=== PATIENT | female | born 1990 | race Caucasian/White ===

== ENCOUNTER 2019-05-26 09:30 | Observation (INO) | payer BC, SELFPAY ==
[2019-05-26 10:22] VITALS: BP 115/75; PULSE 85
[2019-05-26 10:30] VITALS: BMI 27.6
--- NOTE | 2019-06-23 10:55 | PM.OBTRLD ---
OB - Triage/Final Diagnosis Final Diagnosis (1) Spotting: Code(s): N92.0 - Excessive and frequent menstruation with regular cycle Status: Acute
== END 2019-05-26 10:20 | disposition home or self-care (01) ==
PROVIDERS: Admitting Provider Obstetrics & Gynecology; Visit Provider Obstetrics & Gynecology
DX: O26.853 Spotting complicating pregnancy, third trimester (principal); Z3A.29 29 weeks gestation of pregnancy
CPT/HCPCS: G0378; G0379

== ENCOUNTER 2019-06-20 16:54 | Observation (INO) | payer BC, SELFPAY ==
--- NOTE | ~2019-06-20 | US_ITS ---
EXAMINATION: US OB BPP wo non-stress DATE: 06/20/2019 17:55 POLITICAL ORGANIZER INDICATION: Hypertension TECHNIQUE: Real-time transabdominal obstetric ultrasound. FINDINGS: No prior studies for comparison. There is a single living fetus in vertex presentation. The placenta is anterior without placenta pre via. cardiac activity and movement is noted with a heart rate of 141 beats per minute. Biophysical profile: breathin of 2 movement: 2 of 2 tone: 2 of 2 Amniotic flud pocket: 2 of 2 Total score: 8 of 8 IMPRESSION: 1. Single living intrauterine in vertex presentation. 2: Total biophysical profile score of 8/8. Reviewed, dictated and finalized at location A. TICAL ORGANIZER
[2019-06-20 17:05] LABS: Basophils Percent Auto 0.2 % (0.2-1.2); Eosinophils Absolute Auto 0.1 K/mm3 (0-0.3); Eosinophils Percent Auto 0.5 % (0-4.4); Hematocrit 31.9 % (37.0-47.0); Hemoglobin 10.9 g/dL (12.0-15.0); Immature Granulocyte Absolute 0.13 K/mm3 (0.00-0.031); Immature Granulocyte Percent A 1.1 % (0-0.5); Lymphocytes Absolute Auto 2.03 K/mm3 (0.9-3.2); Lymphocytes Percent Auto 16.5 % (18.3-44.2); Mean Corpuscular HGB Conc 34.2 g/dl (32-36); Mean Corpuscular Hemoglobin 31.8 pg (26-34); Mean Platelet Volume 11.4 fl (7.4-10.4); Monocytes Absolute Auto 0.9 K/mm3 (0.1-0.6); Monocytes Percent Auto 7.4 % (2.6-8.5); Neutrophils Absolute Auto 9.1 K/mm3 (1.3-6.7); Neutrophils Percent Auto 74.3 % (45.5-73.1); Platelet Count Result 172 k/mm3 (150-375); Red Blood Count 3.43 M/mm3 (4.2-5.4); Red Cell Distribution Width 12.8 % (11.5-14.5); White Blood Count 12.3 K/mm3 (4.5-10.0)
[2019-06-20 17:13] LABS: Creatinine Urine 35.9 mg/dL; Total Protein Urine Random 12 mg/dL
[2019-06-20 17:16] LABS: Add Urine Microscopic? YES; Appearance Urine Clear (Clear); Bacteria Urine Trace /hpf; Bilirubin Urine Negative (Negative); Blood Urine Negative (Negative); Color Urine Straw (Yellow); Glucose Urine UA Negative (Negative); Ketones Urine Trace mg/dL (Negative); Leukocyte Esterase Ur Negative LEU/UL (NEGATIVE); Mucus Urine Rare /lpf; Nitrate Urine Negative (Negative); Protein Urine Negative (Negative); RBC Urine 0-2 /hpf (0-2); Urobilinogen Urine Negative mg/dL (<2.0)
[2019-06-20 17:17] LABS: Alanine Aminotransferase 16 U/L (4-35); Albumin Level 3.6 g/dL (3.5-5.1); Alkaline Phosphatase 100 U/L (38-126); Aspartate Amino Transferase 20 U/L (14-36); Bilirubin,Total 0.2 mg/dL (0.2-1.3); Blood Urea Nitrogen 11 mg/dL (7-17); Calcium 9.5 mg/dL (8.4-10.2); Carbon Dioxide 19 mmol/L (22-30); Chloride 102 mmol/L (98-107); Estimated Glomerular Filt Rate > 60; Glucose 84 mg/dL (65-105); Potassium 3.6 mmol/L (3.4-5.0); Sodium 136 mmol/L (137-145); Uric Acid 4.1 mg/dL (2.5-7.5)
[2019-06-20 17:27] VITALS: BP 116/70; PULSE 91
[2019-06-20 20:57] LABS: Fetal Fibronectin Negative
--- NOTE | 2019-06-23 20:51 | PM.OBTRLD ---
OB - Triage/Final Diagnosis Evaluation Laboratory results: Laboratory Tests 06/20/19 06/20/19 06/20/19 16:54 16:54 16:54 WBC 12.3 H RBC 3.43 L Hgb 10.9 L Hct 31.9 L MCV 93.0 MCH 31.8 MCHC 34.2 RDW 12.8 Plt Count 172 MPV 11.4 H Immature Gran % (Auto) 1.1 H Neut % (Auto) 74.3 H Lymph % (Auto) 16.5 L Stevens % (Auto) 7.4 Eos % (Auto) 0.5 Baso % (Auto) 0.2 Lymph # (Auto) 2.03 Stevens # (Auto) 0.9 H Eos # (Auto) 0.1 Baso # (Auto) 0.0 Abs Immat Gran (auto) 0.13 H Absolute Neuts (auto) 9.1 H Absolute Nucleated RBC 0.0 Nucleated RBC % 0.0 Sodium Potassium Chloride Carbon Dioxide BUN Creatinine Estim Creat Clear Calc Estimated GFR Glucose Uric Acid Calcium Total Bilirubin AST ALT Alkaline Phosphatase Total Protein Albumin Urine Color Straw Urine Appearance Clear Urine pH 6.0 Ur Specific [place] 1.010 Urine Protein Negative Urine Glucose (UA) Negative Urine Ketones Trace Ur Blood (Man) Negative Urine Nitrate Negative Urine Bilirubin Negative Urine Urobilinogen Negative Ur Leukocyte Esterase Negative Urine RBC 0-2 Urine WBC 4-6 H Urine Bacteria Trace Urine Mucus Rare U Random Total Protein 12 Urine Creatinine 35.9 Fibronectin 06/20/19 06/20/19 16:54 20:17 WBC RBC Hgb Hct MCV MCH MCHC RDW Plt Count MPV Immature Gran % (Auto) Neut % (Auto) Lymph % (Auto) Stevens % (Auto) Eos % (Auto) Baso % (Auto) Lymph # (Auto) Stevens # (Auto) Eos # (Auto) Baso # (Auto) Abs Immat Gran (auto) Absolute Neuts (auto) Absolute Nucleated RBC Nucleated RBC % Sodium 136 L Potassium 3.6 Chloride 102 Carbon Dioxide 19 L BUN 11 Creatinine 0.50 L Estim Creat Clear Calc Not Reportable Estimated GFR > 60 Glucose 84 Uric Acid 4.1 Calcium 9.5 Total Bilirubin 0.2 AST 20 ALT 16 Alkaline Phosphatase 100 Total Protein 7.0 Albumin 3.6 Urine Color Urine Appearance Urine pH Ur Specific [place] Urine Protein Urine Glucose (UA) Urine Ketones Ur Blood (Man) Urine Nitrate Urine Bilirubin Urine Urobilinogen Ur Leukocyte Esterase Urine RBC Urine WBC Urine Bacteria Urine Mucus U Random Total Protein Urine Creatinine Fibronectin Negative Final Diagnosis (1) Non-reactive NST (non-stress test): Code(s): O28.8 - Other abnormal findings on screening of mother Status: Acute
== END 2019-06-20 21:40 | disposition home or self-care (01) ==
LOC: ANHOBOP 21:37 → ANHOBPP 23:22
PROVIDERS: Admitting Provider Obstetrics & Gynecology; Visit Provider Obstetrics & Gynecology
DX: O28.8 Other abnormal findings on antenatal screening of mother (principal); Z3A.00 Weeks of gestation of pregnancy not specified
CPT/HCPCS: 36415; 59025; 76819; 80053; 81001; 82570; 82731; 84156; 84550; 85025; 87086; G0378; G0379

== ENCOUNTER 2019-06-22 14:30 | Outpatient (RCR) | payer BC, SELFPAY ==
[2019-06-22 15:16] VITALS: BP 120/65; PULSE 95
== END 2019-08-04 14:36 | disposition home or self-care (01) ==
LOC: ANHOBOP 14:30
PROVIDERS: Visit Provider Obstetrics & Gynecology
DX: O24.419 Gestational diabetes mellitus in pregnancy, unspecified control (principal); Z3A.33 33 weeks gestation of pregnancy
CPT/HCPCS: 59025

== ENCOUNTER 2019-06-22 14:33 | Outpatient (RCR) | payer BC, SELFPAY ==
[2019-06-14 11:04] VITALS: BMI 29.2
== END 2019-09-04 23:59 | disposition home or self-care (01) ==
LOC: ANHDMC 14:33
PROVIDERS: Visit Provider Obstetrics & Gynecology
DX: O24.410 Gestational diabetes mellitus in pregnancy, diet controlled (principal); Z3A.00 Weeks of gestation of pregnancy not specified; Z71.3 Dietary counseling and surveillance; Z71.89 Other specified counseling
CPT/HCPCS: 97802; G0108

== ENCOUNTER 2019-07-25 06:08 | Inpatient (IN) | payer BC, SELFPAY ==
[2019-07-25] VITALS (86 sets, daily range): BP systolic 94–135; BP diastolic 56–99; PULSE 62–105; RESP 16; TEMP 36.6–37.3; O2SAT 98–100; BMI 28.2
[2019-07-25 07:29] LABS: Basophils Percent Auto 0.4 % (0.2-1.2); Eosinophils Absolute Auto 0.1 K/mm3 (0-0.3); Eosinophils Percent Auto 0.6 % (0-4.4); Hematocrit 33.3 % (37.0-47.0); Hemoglobin 11.3 g/dL (12.0-15.0); Immature Granulocyte Percent A 1.1 % (0-0.5); Lymphocytes Absolute Auto 1.66 K/mm3 (0.9-3.2); Lymphocytes Percent Auto 17.5 % (18.3-44.2); Mean Corpuscular HGB Conc 33.9 g/dl (32-36); Mean Corpuscular Hemoglobin 31.9 pg (26-34); Mean Corpuscular Volume 94.1 fl (80-100); Mean Platelet Volume 12.1 fl (7.4-10.4); Monocytes Absolute Auto 0.7 K/mm3 (0.1-0.6); Monocytes Percent Auto 7.2 % (2.6-8.5); Neutrophils Percent Auto 73.2 % (45.5-73.1); Platelet Count Result 140 k/mm3 (150-375); Red Blood Count 3.54 M/mm3 (4.2-5.4); Red Cell Distribution Width 13.2 % (11.5-14.5); White Blood Count 9.5 K/mm3 (4.5-10.0)
[2019-07-25 08:18] LABS: Glucose Point of Care 91 (65-105)
[2019-07-25] MEDS: OXYTOCIN 30 UNITS/NS 500 ML 30 UNITS/500 ML BAG IV CONT (10:32)
[2019-07-25] MEDS: LACTATED RINGERS 1,000 ML 125 ML IV CONT ×2 (10:32→12:40)
--- NOTE | 2019-07-25 13:23 | WPDANESEPPF ---
Anes - Initial Pre Proc Eval Date/Time: 07/25/19 13:23 Surgeon: Lauro Moreno MD Pre Op Diagnosis: SROM?/ leaking fluid Patient Data Age: 29 Gender: F Height: 5 ft 5 in Weight: 77 kg Last Vital Signs Temp 37.1 C 07/25/19 10:34 Pulse 72 07/25/19 13:22 BP 107/65 07/25/19 13:22 Pulse Ox 100 07/25/19 13:22 Allergies Allergy/AdvReac Type Severity Reaction Status Date / Time pine nut AdvReac Vomiting Verified 07/19/19 09:36 Home Medications Medication Instructions Recorded Confirmed Type vits 75-iron 28 mg-folic 1 pkg PO DAILY 03/21/19 07/25/19 History acid 800 mcg-omega-3 oral combo pack blood sugar diagnostic #100 each 06/09/19 07/25/19 Rx lancets 30 gauge #100 each 06/09/19 07/25/19 Rx [id number]-vit C-docusate sod 1 tablet PO DAILY #30 tablet 06/22/19 07/25/19 Rx 90 mg-1 mg-12 mcg-120 mg-50mg tablet Laboratory Tests 07/25/19 07/25/19 07/25/19 07:17 07:17 07:17 WBC 9.5 K/mm3 K/mm3 (4.5-10.0) RBC 3.54 M/mm3 L M/mm3 (4.2-5.4) Hgb 11.3 g/dL L g/dL (12.0-15.0) Hct 33.3 % L % (37.0-47.0) MCV 94.1 fl fl (80-100) MCH 31.9 pg pg (26-34) MCHC 33.9 g/dl g/dl (32-36) RDW 13.2 % % (11.5-14.5) Plt Count 140 k/mm3 L k/mm3 (150-375) MPV 12.1 fl H fl (7.4-10.4) Immature Gran % (Auto) 1.1 % H % (0-0.5) Neut % (Auto) 73.2 % H % (45.5-73.1) Lymph % (Auto) 17.5 % L % (18.3-44.2) [place] % (Auto) 7.2 % % (2.6-8.5) Eos % (Auto) 0.6 % % (0-4.4) Baso % (Auto) 0.4 % % (0.2-1.2) Lymph # (Auto) 1.66 K/mm3 K/mm3 (0.9-3.2) [place] # (Auto) 0.7 K/mm3 H K/mm3 (0.1-0.6) Eos # (Auto) 0.1 K/mm3 K/mm3 (0-0.3) Baso # (Auto) 0.0 K/mm3 K/mm3 (0.0-0.1) Abs Immat Gran (auto) 0.10 K/mm3 H K/mm3 (0.00-0.031) Absolute Neuts (auto) 7.0 K/mm3 H K/mm3 (1.3-6.7) Absolute Nucleated RBC 0.0 K/mm3 K/mm3 (0.0-0.012) Nucleated RBC % 0.0 % % (0.0-0.2) POC Capillary Glucose RPR Pending Blood Type AB Positive Antibody Screen Negative 07/25/19 08:14 WBC RBC Hgb Hct MCV MCH MCHC RDW Plt Count MPV Immature Gran % (Auto) Neut % (Auto) Lymph % (Auto) [place] % (Auto) Eos % (Auto) Baso % (Auto) Lymph # (Auto) [place] # (Auto) Eos # (Auto) Baso # (Auto) Abs Immat Gran (auto) Absolute Neuts (auto) Absolute Nucleated RBC Nucleated RBC % POC Capillary Glucose 91 mg/dl mg/dl (65-105) RPR Blood Type Antibody Screen Patient hx anesthesia problems: none Family hx anesthesia problems: none PMFSH Past Medical History Medical History Elevated blood sugar Gestational diabetes mellitus (GDM) Family History Family History Mother Diabetes mellitus Hypertension Father Diabetes mellitus Family history of hypercholesterolemia Hypertension Grandparent Diabetes mellitus Family history of hypercholesterolemia Hypertension Cerebrovascular accident Social History Social History Smoking status: Never smoker Alcohol intake: current Substance use: never Gender identity (if verbalized by the patient): Female Spiritual care concerns: No Anes - Eval Final PreProcedure Day of Procedure 07/25/19 13:23 Patient weight: overweight Heart: regular rate and rhythm Lungs: clear to auscultation Neurological: alert and oriented ASA classification: II Emergent: no Anesthetic plan: proceed Anesthesia type and monitoring: regional e
[2019-07-25 13:44] LABS: Glucose Point of Care 65 (65-105)
[2019-07-25] MEDS: OXYTOCIN 30 UNITS/NS 500 ML 30 UNITS/500 ML BAG 125 UNITS IV CONT (15:36)
--- NOTE | 2019-07-25 15:47 | PM.IMHP ---
H&P: HPI History of Present Illness Chief complaint: SROM?/ leaking fluid Narrative: Snow Aviles is a 29 year old female G1 presented with complaints of leaking of fluid at 0430. Confirmed positive rupture of membranes on L and D. Irregular contractions. Cervix on admission 2-/-2. PNC significant for her having an abnormal one hour glucola. She refused three hour GTT. She had subsequent glucose monitoring which she had some elevated glucose levels. She was seen by testing consultant. Her fingersticks did normalize. She did not require insulin. Last ultrasound showed normal EFW. She had anemia of which improved on oral iron supplementation. GBS negative. Labs: ABpos, Ab-neg, Ur Cx-neg, HepBsag-neg, GC/CHL- neg/neg, H/H-.6, CF-neg, FragX-neg, SMNA 2 copies, Rub-Im, RPR-NR. Review of Systems Review of Systems: All systems reviewed & are unremarkable except as noted in HPI and below Constitutional: Constitutional: Reports no additional constitutional complaints and Denies headache(s) Eyes: Eyes: Denies spots in vision ENT: Reports system reviewed and no additional complaints, except as documented and Denies headache(s) Cardiovascular: Cardiovascular: Denies chest pain and Denies dyspnea Respiratory: Respiratory: Denies dyspnea Gastrointestinal: Gastrointestinal: Reports no additional gastrointestinal complaints Genitourinary: Genitourinary: Reports amenorrhea Musculoskeletal: Musculoskeletal: Reports no additional musculoskeletal complaints Integumentary/Breasts: Skin/Breast: Denies breast mass and Denies rash Neurologic: Denies headache(s) Psychiatric: Psychiatric: Reports no additional psychiatric complaints [facility] Past Medical History Medical History (Updated 07/25/19 @ 15:57 by Lauro Moreno MD) Elevated blood sugar Gestational diabetes mellitus (GDM) Spontaneous rupture of membranes Family History Family History Mother Diabetes mellitus Hypertension Father Diabetes mellitus Family history of hypercholesterolemia Hypertension Grandparent Diabetes mellitus Family history of hypercholesterolemia Hypertension Cerebrovascular accident Social History Social History Smoking status: Never smoker Alcohol intake: current Substance use: never Gender identity (if verbalized by the patient): Female Spiritual care concerns: No Meds Home Medications and Allergies Home Medications Medication Instructions Recorded Confirmed Type vits 75-iron 28 mg-folic 1 pkg PO DAILY 03/21/19 07/25/19 History acid 800 mcg-omega-3 oral combo pack blood sugar diagnostic #100 each 06/09/19 07/25/19 Rx lancets 30 gauge #100 each 06/09/19 07/25/19 Rx [id number]-vit C-docusate sod 1 tablet PO DAILY #30 tablet 06/22/19 07/25/19 Rx 90 mg-1 mg-12 mcg-120 mg-50mg tablet Allergies Allergy/AdvReac Type Severity Reaction Status Date / Time pine nut AdvReac Vomiting Verified 07/19/19 09:36 Vital Signs Vital Signs - 24 hr 07/25/19 06:31 07/25/19 06:46 07/25/19 07:01 Temperature Pulse Rate 105 H 89 91 Blood Pressure 126/79 118/76 114/74 Pulse Oximetry 07/25/19 07:16 07/25/19 07:31 07/25/19 09:06 Temperature Pulse Rate 89 88 89 Blood Pressure 94/78 L 116/80 118/76 Pulse Oximetry 07/25/19 10:32 07/25/19 10:34 07/25/19 11:01 Temperature 98.8 F Pulse Rate 84 78 Blood Pressure 113/70 118/77 Pulse Oximetry 07/25/19 11:31 07/25/19 11:57 07/25/19 11:58 Temperature Pulse Rate 78 86 84 Blood Pressure 125/83 119/76 135/73 Pulse Oximetry 100 07/25/19 12:00 07/25/19 12:01 07/25/19 12:02 Temperature Pulse Rate 94 83 Blood Pressure 99/73 L 124/67 Pulse Oximetry 100 07/25/19 12:03 07/25/19 12:04 07/25/19 12:07 Temperature Pulse Rate 78 79 78 Blood Pressure 121/62 111/60 116/64 Pulse Oximetry
--- NOTE | 2019-07-25 15:58 | PM.OBPRVD ---
OB - Delivery Note Procedure Delivery date: 07/25/19 Procedure: Spontaneous vaginal delivery events: Gestational Diabetes Intrapartal events: None Delivery augmentation: pitocin Delivery monitor: external FHT Route of delivery: Laceration description: Perineal - 2nd Degree Delivery repair: vicryl (3.0 vicryl) Specimen: Yes Estimated blood loss (mL): 200 Anesthesia type: Epidural Disposition: floor Complications: None Narrative: Patient presented to Labor and delivery with complaints of rupture of membranes. Rupture of membranes was confirmed. This occurred at 4:30 a.m. on 07/25/2019. The fluid was clear. She had irregular contractions her cervix on admission was 2-3 cm dilated 90%. She did ambulate. At 6:00 a.m. after time of rupture of membranes she had not progressed to active labor and she was started on Pitocin augmentation. She progressed into active labor after Pitocin and dilated to complete. 2nd stage of labor tracing showed variable decelerations she did start having a late component to this which did improved with oxygen. She delivered shortly afterwards a male at 1458. There was noted to be a left compound hand presentation. There was also a loose nuchal cord which was manually reduced. Terminal meconium was noted. Male was vigorously crying upon delivery and placed on maternal abdomen. Delayed cord clamping for 45 seconds occurred. Placenta delivered spontaneously and intact. Cord gases and cord blood was obtained. She did sustain a second-degree perineal laceration which was repaired with 3 0 Vicryl. EBL was 200 cc. Baby Weeks of gestation at delivery: 38 gender: Male Weight (pounds): 7 Weight (ounces): 1 presentation: vertex position: Left Occiput Anterior (left compound hand presentation, terminal meconium noted) Placenta delivery description: Spontaneous cord vessel description: 3 Vessels score one minute: 9 score five minutes: 9
[2019-07-25] MEDS: BENZOCAINE 20% AER SPR (*SP) 56 GM CAN 1 SPRAY TOPICAL (18:26)
[2019-07-25] MEDS: WITCH HAZEL 40 PADS 1 PAD TOPICAL (18:26)
--- NOTE | 2019-07-25 18:40 | OBPPTRN ---
Patient transferred to post room #281 via wheelchair. Support person, Damien, present. Oriented to unit, room, information board, rooming in, admission packet and security measures. Patient verbalizes understanding.
[2019-07-25] MEDS: LANOLIN (LANSINOH) 7.5 GM CREAM 1 APPLIC TOPICAL (20:42)
[2019-07-25] MEDS: IBUPROFEN 600 MG TABLET PO (21:26)
[2019-07-26] MEDS: IBUPROFEN 600 MG TABLET PO ×3 (05:13→20:41)
[2019-07-26 05:31] LABS: Hematocrit 34.5 % (37.0-47.0); Hemoglobin 11.6 g/dL (12.0-15.0)
[2019-07-26] MEDS: DOCUSATE SODIUM 100 MG CAPSULE PO ×2 (07:58→15:57)
[2019-07-26] MEDS: MULTIVIT/MIN/PREN/FOL AC/IRON TABLET 1 TAB PO (07:58)
[2019-07-26 08:00] VITALS: BP 90/55; PULSE 84; RESP 18; TEMP 36.6
--- NOTE | 2019-07-26 08:32 | P.PNOB_ITS ---
OB - PN: Subj Subjective Date/time seen: 07/26/19 08:32 Patient comments: pain well controlled, tolerating diet and other (Decreasing lochia.) baby status: doing well and nursing well [place] feeding status: exclusively breast feeding OB - PN: Obj Data Labs CBC & Chem 7: 07/26/19 04:57 Labs: Laboratory Results - last 24 hr 07/25/19 07/26/19 13:42 04:57 Hgb 11.6 L Hct 34.5 L POC Capillary Glucose 65 OB - PN A/P Plan day: 1 Plan: routine care Comments: Patient doing well. Time Spent With Patient Time: Total time spent is greater than 50% in coordination of care (as documented) at patient's floor/unit and/or counseling patient: Exam Psych: Affect: normal affect Other: Abd: fundus firm below umbilicus, nontender Perineum: healing Ext: nontender
--- NOTE | 2019-07-26 08:45 | WPDANLDPN2 ---
Anes-Prog Note L&D Date/Time: 07/26/19 08:45 Comfortable throughout: labor and delivery Neuraxial method: epidural Epidural/Spinal procedure site: clean & non-tender Neuro status: Neuro function grossly intact. Cardiovascular status: normal Respiratory status: normal Airway patency: baseline Mental status: baseline Post-Op hydration status: normal Vital Signs: Last Vital Signs Temp 36.6 C 07/25/19 19:00 Pulse 102 H 07/25/19 21:05 Resp 16 07/25/19 19:00 BP 122/76 07/25/19 19:00 Pulse Ox 98 07/25/19 19:00 I/O: Intake & Output 07/25/19 07/26/19 07/26/19 23:59 07:59 15:59 Output Total 50 Balance -50 Patient feedback: Patient satisfied with anesthetic care.
--- NOTE | 2019-07-26 13:45 | PC.NURSE ---
Consulted with patient, mother reports she has discomfort with feedings. Both nipples have signs of shallow latch. right has a small blister to top of nipple and right is slightly bruised. Discussed the importance of a deep latch and correcting or breaking latch if mother has pain. Reviewed feeding cues, frequencies, duration of feedings, feeding elimination flow sheet, and signs of adequate intake. Demonstrated stimulation techniques to wake infant for feeding. Assisted with to breast. Reviewed positioning/alignment in cross cradle, holding breast in U hold and guided asymmetrical latch on. Discussed rational for each. Several attempts before was able to latch correctly. nursed eagerly, with steady draws and occasional swallowing noted. Reviewed signs of a correct latch, effective nursing and suck swallow ratio. Infant would pull back during feeding. Suggested mother give slight resistance and now allow infant to pull back on nipple. Demonstrated how to adjust latch more deeply while infant is nursing. Mother reported latch felt better than previous, she continues to have slight tenderness. Reviewed this may be from current nipple condition. Nipple care reviewed and gel pads given. Instructed mother to call out for RN assistance if she is unable to latch for feeding or she has discomfort with nursing. Instructed feeding should be initiated three hours from start of last feeding or if feeding cues are noted before. Mother voiced understanding of information shared.
[2019-07-26 16:06] LABS: Rapid Plasma Reagin Non-Reactive (NonReactive)
[2019-07-26 19:44] VITALS: BP 111/64; PULSE 80; RESP 16; TEMP 36.5; O2SAT 99
[2019-07-27] MEDS: IBUPROFEN 600 MG TABLET PO (07:52)
[2019-07-27] MEDS: MULTIVIT/MIN/PREN/FOL AC/IRON TABLET 1 TAB PO (07:52)
[2019-07-27] MEDS: DOCUSATE SODIUM 100 MG CAPSULE PO (07:53)
[2019-07-27] MEDS: DIBUCAINE 1% OINTMENT 30 GM TUBE 1 APPLIC TOPICAL (07:53)
[2019-07-27] MEDS: BENZOCAINE 20% AER SPR (*SP) 56 GM CAN 1 SPRAY TOPICAL (07:54)
[2019-07-27] MEDS: WITCH HAZEL 40 PADS 1 PAD TOPICAL (07:54)
[2019-07-27 08:00] VITALS: BP 116/71; PULSE 83; RESP 18; TEMP 36.8
--- NOTE | 2019-07-27 09:30 | PC.NURSE ---
Patient viewed the discharge video Mother & Baby Care, The First Two Weeks . Patient was given the opportunity and encouraged to ask questions. Patient verbalized understanding of information shared and has been given the mother/baby guide for home reference.
--- NOTE | 2019-07-27 10:00 | PC.NURSE ---
Consulted with patient, mother reports she is now using the nipple shield for all feedings. Mother states infant had difficulties latching during the night and opted for shield use. Discussed nipple shield precautions and possible complications. Instructions given on application and cleaning of shield. Patient able to return demonstration on proper application of shield. Discussed the need to initiate pumping if infant continues to nurse with the shield. Patient verbalizes understanding. Observed mother is able to latch correctly using the shield. nursed eagerly, with steady draws and occasional swallowing noted, followed with long pausing. Advised mother to continue to stimulate to keep infant awake and nursing effectively for increased intake and stimulation of milk supply. Reviewed signs of a correct latch, effective nursing and suck swallow ratio. was able to maintain latch without discomfort to mother. Nipple care reviewed. Mother will initiate pumping after each feeding using the nipple shield until her milk is established and infant is gaining weight. Mother is feeding as required and waking to feed if needed. has had 8 effective feedings in the past 24 hours, and is currently meeting outcomes for weight, output, jaundice and feeding frequencies. Mother states she feels confident to continue effective at home. Reviewed transition to breast milk, signs of adequate intake, and engorgement/relief. Instructed to call ICP if intake/output less than required. Reviewed regular medications mother is taking. Information provided per Jazz. Reviewed community resources on the [facility] website and in the Mom/Baby guide. Information on outpatient services provided. Mother has no further questions at this time.
--- NOTE | 2019-07-27 10:04 | P.DS_ITS ---
DS: Diagnosis Admitting Diagnosis Admitting Diagnosis: IUP at 38 weeks with spontaneous rupture of membranes. OB - DS: Summary OB Procedures : None OB Procedures Intrapartum: Spontaneous Vag Delivery OB Procedures: : None Time Spent with Patient Time attestation: Total time spent providing and/or coordinating discharge serv ices: Exam Psych: Affect: normal affect Other: Abd: fundus firm below umbilicus, nontender Perineum: healing Ext: nontender DS: Data Data Completed and Pending Pending studies at discharge: Pending at discharge 07/25/19 16:20 Surgical [PTH] Routine Labs on day of discharge: Labs from last 24 hours 07/25/19 07:17 RPR Non-reactive Discharge Plan Discharge Attending physician on discharge: Lauro Moreno Discharging Clinician: Lauro Moreno Anticipated Discharge Date/Time: 07/27/19 10:07 Patient Disposition: Home, Self-Care Activity: pelvic rest Diet: regular Discharge Instructions: Routine precautions. May take over the counter Tylenol or Ibuprofen for pain. Patient Instructions: Antibiotic Form Stand Alone Forms: General Discharge Information Follow-up/Referrals: Lauro Moreno MD [Physician] - 4 Weeks (Call for appointment) Discharge Medications: Continued One A Day Women's DHA 28 mg iron- 800 mcg combo pack 1 pkg PO DAILY RF: 0 Discontinued (DME) Contour Next Test Strips Strip See Rx Instructions .ROUTE .MEDSUPPLY Qty: 100 RF: 2 (DME) lancets [BD Ultra-Fine II Lancets] 30 gauge misc See Rx Instructions .ROUTE .MEDSUPPLY Qty: 100 RF: 2 FerraPlus 90 08-3-03-120-50 oz-kh-gsw-mg-mg tablet 1 tablet PO DAILY Qty: 30 RF: 1 Date of admission: 07/25/19 06:08 Primary Care Provider: UNKNOWN,DOCTOR Admitting Provider: Lauro Moreno Attending physician on admission: Lauro Moreno
--- NOTE | 2019-07-27 10:04 | PM.OBPNVD ---
OB - PN: Subj Subjective Date/time seen: 07/27/19 10:04 Patient comments: pain well controlled, tolerating diet and other (Decreasing lochia.) baby status: doing well and nursing well [place] feeding status: exclusively breast feeding OB - PN: Obj Data Labs CBC & Chem 7: 07/26/19 04:57 Labs: Laboratory Results - last 24 hr 07/25/19 07:17 RPR Non-reactive OB - PN A/P Plan day: 2 Plan: discharge home and other Comments: Patient doing well. Follow up 4-6 weeks. Discharge instructions provided. Time Spent With Patient Time: Total time spent is greater than 50% in coordination of care (as documented) at patient's floor/unit and/or counseling patient: Time with patient: less than 15 minutes Exam Psych: Affect: normal affect Other: Abd: fundus firm below umbilicus, nontender Perineum: healing Ext: nontender
--- NOTE | 2019-07-27 11:27 | PC.NURSE ---
Self care and infant care discharge instructions given including follow up visit date and time. Very pleasant and cooperative. No questions or concerns verbalized. at side.
== END 2019-07-27 15:48 | disposition home or self-care (01) | DRG 807 ==
LOC: ANHLDR 06:39 → ANHOB2 18:46
PROVIDERS: Admitting Provider Obstetrics & Gynecology; Visit Provider Obstetrics & Gynecology
DX: O24.429 Gestational diabetes mellitus in childbirth, unspecified control (principal); Z37.0 Single live birth; Z3A.38 38 weeks gestation of pregnancy; Z23 Encounter for immunization; O70.1 Second degree perineal laceration during delivery; O69.81X0 Labor and delivery complicated by cord around neck, without compression, not applicable or unspecified; O32.6XX0 Maternal care for compound presentation, not applicable or unspecified; O76 Abnormality in fetal heart rate and rhythm complicating labor and delivery; O77.0 Labor and delivery complicated by meconium in amniotic fluid; O99.02 Anemia complicating childbirth
CPT/HCPCS: 36415; 85014; 85018; 85025; 86592; 86850; 86900; 86901; 88307; A9270; J2590; J2795; J7120

== ENCOUNTER → 2021-08-22 12:58 | Outpatient (CLI) | payer BC, SELFPAY ==
--- NOTE | ~2021-08-22 | MR_ITS ---
EXAMINATION: MR foot RT wo/w con DATE: 08/22/2021 13:51 INDICATION: Metatarsalgia with pain at the right fifth metatarsophalangeal joint. TECHNIQUE: Magnetic resonance imaging (MRI) of the right fore/mid foot was performed without and with 15 mL Multihance intravenous contrast. Sequences included axial, sagittal and coronal T1-weighted FS E, sagittal fluid sensitive FSE STIR, coronal PD-weighted FS FSE, axial T2-weighted FS FSE, axial T1- weighted FS FSE and postcontrast axial, sagittal and coronal T1-weighted FS FSE. COMPARISON: None FINDINGS: Bone alignment is normal. Normal marrow signal with no reactive edema, fracture or pathologic marrow replacing process. Joint spaces are normal with no joint effusions, erosions or synovitis. The flexor and extensor tendons are normal. The Lisfranc ligament complex as well as the collateral ligament co mplex at the metatarsophalangeal and interphalangeal joints are normal. Intrinsic musculature is norm al. No abnormally enhancing lesions identified. IMPRESSION: 1. Normal MRI of the right mid and forefoot. No etiology identified for reported pain at the fifth me tatarsophalangeal joint. Reviewed, dictated and finalized at location A. IMPRESSION: 1. Normal MRI of the right mid and forefoot. No etiology identified for reporte d pain at the fifth metatarsophalangeal joint.
[2021-08-22 13:21] LABS: Estimated Glomerular Filt Rate > 60
== END ==
PROVIDERS: Visit Provider Podiatrist Foot & Ankle Surgery
DX: M77.41 Metatarsalgia, right foot (principal)
CPT/HCPCS: 73720; A9577

== ENCOUNTER → 2022-03-26 10:50 | Outpatient (CLI) | payer BC, SELFPAY ==
--- NOTE | ~2022-03-26 | US_ITS ---
EXAMINATION: US OB <= 14 weeks fetus DATE: 03/26/2022 11:10 INDICATION: Patency with inconclusive viability during first trimester TECHNIQUE: Real-time pelvic ultrasound utilizing both a transvaginal and transabdominal probe was pe rformed. The interpreting radiologist was not present for the study. COMPARISON: None. FINDINGS: The uterus measures 7.9 x 6.5 x 6.6 cm. There is an intrauterine gestational sac. A yolk sac and fet al pole are identified. The crown rump length measures 2.2 cm, which correlates with an estimated ges tational age of 8 weeks and 6 days. heart motion is identified measuring 173 beats per minute ( bpm) by M-mode Doppler. The bilateral ovaries are not visualized. There is no free fluid in the pelvi s. IMPRESSION: 1. Single living fetus with heart of 173 bpm. 2. Gestational age by ultrasound of 8 weeks 6 day(s) +/- 6 day(s) with ultrasound estimated date of delivery (AVERY) of 10/30/2022. Reviewed, dictated and finalized at location A. PANNER IMPRESSION: 1. Single living fetus with heart of 173 bpm. 2. Gestational age by ultrasound of 8 weeks 6 day(s) +/- 6 day(s) with ultraso und estimated date of delivery (AVERY) of 10/30/2022.
== END ==
PROVIDERS: PCP Obstetrics & Gynecology; Visit Provider Obstetrics & Gynecology
DX: O36.80X0 Pregnancy with inconclusive fetal viability, not applicable or unspecified (principal); Z3A.08 8 weeks gestation of pregnancy
CPT/HCPCS: 76801

== ENCOUNTER 2022-10-21 15:59 | Inpatient (IN) | payer BC, SELFPAY ==
[2022-10-21] VITALS (17 sets, daily range): BP systolic 107–145; BP diastolic 65–83; PULSE 87–102; TEMP 36.8–36.9; BMI 31.5
[2022-10-21 17:09] LABS: Basophils Percent Auto 0.3 % (0.2-1.2); Eosinophils Absolute Auto 0.1 K/mm3 (0-0.3); Eosinophils Percent Auto 1.1 % (0-4.4); Hematocrit 34.2 % (37.0-47.0); Hemoglobin 11.5 g/dL (12.0-15.0); Immature Granulocyte Absolute 0.14 K/mm3 (0.00-0.031); Immature Granulocyte Percent A 1.2 % (0-0.5); Lymphocytes Absolute Auto 1.99 K/mm3 (0.9-3.2); Lymphocytes Percent Auto 17.7 % (18.3-44.2); Mean Corpuscular HGB Conc 33.6 g/dl (32-36); Mean Corpuscular Hemoglobin 32.3 pg (26-34); Mean Corpuscular Volume 96.1 fl (80-100); Mean Platelet Volume 10.7 fl (7.4-10.4); Monocytes Absolute Auto 0.9 K/mm3 (0.1-0.6); Neutrophils Absolute Auto 8.1 K/mm3 (1.3-6.7); Neutrophils Percent Auto 71.7 % (45.5-73.1); Platelet Count Result 167 k/mm3 (150-375); Red Blood Count 3.56 M/mm3 (4.2-5.4); Red Cell Distribution Width 13.3 % (11.5-14.5); White Blood Count 11.2 K/mm3 (4.5-10.0)
[2022-10-21] MEDS: DINOPROSTONE 10 MG VAG INSERT VAGINAL (17:20)
--- NOTE | 2022-10-21 17:53 | LDADM ---
This patient, Snow Aviles, was admitted to Labor/Delivery/Recovery 106 on 10/21/22 at 15:59. Plans for labor, pain management and were discussed with patient. Patient/family oriented to hospital policies and general routines including ID bracelet, bed and alarms, visiting hours, pain management, procedures, bathroom and other care routines, personal items, smoking policy, room service/diet and guest tray routines, security routines, and visiting hours. Patient/Family are encouraged to report perceived risks to care and to ask questions if they do not understand what they are told or what they should do. See [facility]BIX for further documentation.
[2022-10-21 18:51] LABS: Glucose Point of Care 80 mg/dl (65-105)
[2022-10-21 22:05] LABS: Glucose Point of Care 156 mg/dl (65-105)
--- NOTE | 2022-10-21 22:50 | WPDANESEPPF ---
Anes - Initial Pre Proc Eval Procedure: Labor Epidural Date/Time: 10/21/22 22:50 Surgeon: Lauro Moreno MD Pre Op Diagnosis: Labor Pain Pre Op Diagnosis: IOL Patient Data Age: 32 Gender: F Height: 1.65 m Weight: 86 kg Last Vital Signs Temp 36.8 C 10/21/22 22:00 Pulse 87 10/21/22 22:40 BP 117/71 10/21/22 22:40 O2 Del Method Room Air 10/21/22 17:52 Allergies Allergy/AdvReac Type Severity Reaction Status Date / Time pine nut AdvReac Vomiting Verified 10/21/22 17:48 Home Medications Medication Instructions Recorded Confirmed Type prenat.vits,leonardo,[id number] 1 tablet PO DAILY 03/18/22 10/21/22 History blood sugar diagnostic (Contour #100 ea 08/15/22 10/21/22 Rx Next Test Strips) lancets 30 gauge (BD Ultra-Fine II #100 ea 08/15/22 10/21/22 Rx Lancets) ferrous sulfate 325 mg (65 mg 325 mg PO DAILY 08/26/22 10/21/22 History iron) tablet (Feosol) insulin detemir U-100 100 unit/mL 28 unit subcut HS 10/01/22 10/21/22 History (3 mL) subcutaneous pen (Levemir FlexPen) Laboratory Tests 10/21/22 10/21/22 10/21/22 16:47 18:48 22:02 WBC 11.2 H K/mm3 (4.5-10.0) RBC 3.56 L M/mm3 (4.2-5.4) Hgb 11.5 L g/dL (12.0-15.0) Hct 34.2 L % (37.0-47.0) MCV 96.1 fl (80-100) MCH 32.3 pg (26-34) MCHC 33.6 g/dl (32-36) RDW 13.3 % (11.5-14.5) Plt Count 167 k/mm3 (150-375) MPV 10.7 H fl (7.4-10.4) Immature Gran % (Auto) 1.2 H % (0-0.5) Neut % (Auto) 71.7 % (45.5-73.1) Lymph % (Auto) 17.7 L % (18.3-44.2) [place] % (Auto) 8.0 % (2.6-8.5) Eos % (Auto) 1.1 % (0-4.4) Baso % (Auto) 0.3 % (0.2-1.2) Lymph # (Auto) 1.99 K/mm3 (0.9-3.2) [place] # (Auto) 0.9 H K/mm3 (0.1-0.6) Eos # (Auto) 0.1 K/mm3 (0-0.3) Baso # (Auto) 0.0 K/mm3 (0.0-0.1) Abs Immat Gran (auto) 0.14 H K/mm3 (0.00-0.031) Absolute Neuts (auto) 8.1 H K/mm3 (1.3-6.7) Absolute Nucleated RBC 0.0 K/mm3 (0.0-0.012) Nucleated RBC % 0.0 % (0.0-0.2) POC Capillary Glucose 80 mg/dl 156 H mg/dl (65-105) (65-105) RPR Pending Blood Type AB Positive Antibody Screen Negative Patient hx anesthesia problems: none Family hx anesthesia problems: none Results Review: All pre-operative results and documents have been reviewed as part of the pre-operative evaluation. [facility] Past Medical History Medical History Gestational diabetes mellitus (GDM) Spontaneous rupture of membranes Surgical History Surgical History [place] teeth removed Family History Family History Mother Skin cancer Polycythemia vera Diabetes mellitus Hypertension Father Diabetes mellitus Family history of hypercholesterolemia Lung cancer Hypertension Dementia Grandparent Diabetes mellitus Family history of hypercholesterolemia Hypertension Cerebrovascular accident Social History Social History Smoking status: Never smoker Alcohol intake: former Alcohol use details: Not since Substance use: never Lack of Transportation: No Lack of Food: Never True Current Housing: I Have Housing Concerned About Future Housing: No Difficulty Paying Gas/Electric Bills: No Difficulty Paying for Meds: No Currently Unemployed: No Education: Master's Degree or Higher Difficulty w/ Childcare or Family Care: No Living arrangements: with family Occupation/Education: occupation Gender identity (if verbalized by the patient): Female Sexual Orientation (if Verbalized by the Patient): Str
[2022-10-22] VITALS (70 sets, daily range): BP systolic 95–135; BP diastolic 51–108; PULSE 67–107; RESP 16–18; TEMP 36.5–37.2; O2SAT 98–100
[2022-10-22 00:03] LABS: Glucose Point of Care 129 mg/dl (65-105)
[2022-10-22 02:05] LABS: Glucose Point of Care 87 mg/dl (65-105)
[2022-10-22 06:00] LABS: Glucose Point of Care 94 mg/dl (65-105)
[2022-10-22] MEDS: LACTATED RINGERS 1,000 ML 125 ML IV CONT ×2 (06:10→08:35)
[2022-10-22] MEDS: OXYTOCIN 30 UNITS/NS 500 ML 30 UNITS/500 ML BAG IV CONT (06:10)
[2022-10-22 08:29] LABS: Glucose Point of Care 100 mg/dl (65-105)
[2022-10-22 09:17] LABS: Rapid Plasma Reagin Non-Reactive (NonReactive)
--- NOTE | 2022-10-22 10:24 | PC.NURSE ---
0916 - Introductions were made and mother shared her history along with working with [employer] A Aleg[employer] in the community with her first baby. 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 Mother states she may put infant at the breast while in the hospital. Encouraged mother to place [id number] until the first feeding if is stable and to wait on the weight. Education was shared to protect her milk supply with latching and/or use hand expression to remove milk if infant doesn't latch in the first hour, then finger feed colostrum to the infant to preserve breast focus. Resources provided with educational trifold for bonding and feeding infant. Parents voiced understanding of information and to call if there is a request for assistance.
[2022-10-22] MEDS: OXYTOCIN 30 UNITS/NS 500 ML 30 UNITS/500 ML BAG 125 UNITS IV CONT (10:54)
[2022-10-22] MEDS: BENZOCAINE 20% AER SPR (*SP) 56 GM CAN 1 SPRAY TOPICAL (13:17)
[2022-10-22] MEDS: WITCH HAZEL 40 PADS 1 PAD TOPICAL (13:17)
--- NOTE | 2022-10-22 13:33 | OBPPTRN ---
Patient transferred to post room #281 via wheelchair. Karenaiban Lal used to transfer patient to the bed. Support person present. Oriented to unit, room, information board, rooming in, admission packet and security measures. Patient verbalizes understanding.
--- NOTE | 2022-10-22 15:20 | PC.NURSE ---
Breast pump provided due to mothers request. Instructions given on cleaning, care, usage, that there should be no pain, pumping schedule for milk production, collection, and storage of human milk. Parents are encouraged to record pumping schedule on the feeding sheet. Patient was assessed for correct placement, flange size, to pump for comfort and nipple stretching/stimulation for adequate milk production every 3 hours (8 times in 24 hours) 1-2 times at night. Mother voiced understanding of the education shared along with mom and baby guide for additional resource information.
[2022-10-22] MEDS: LANOLIN (LANSINOH) 7.5 GM CREAM 1 APPLIC TOPICAL (16:12)
[2022-10-22] MEDS: DOCUSATE SODIUM 100 MG CAPSULE PO (16:12)
[2022-10-22] MEDS: IBUPROFEN 600 MG TABLET PO (17:43)
[2022-10-22] MEDS: ACETAMINOPHEN 325 MG TABLET 650 MG PO (19:10)
[2022-10-23] MEDS: ACETAMINOPHEN 325 MG TABLET 650 MG PO (03:22)
[2022-10-23 05:46] LABS: Glucose Point of Care 103 mg/dl (65-105)
[2022-10-23 06:00] LABS: Hematocrit 33.8 % (37.0-47.0); Hemoglobin 11.3 g/dL (12.0-15.0)
--- NOTE | 2022-10-23 06:26 | PM.IMHP ---
H&P: HPI History of Present Illness Date/Time: 10/21/22 1700 Chief Complaint: Induction of labor Narrative: She is a 32 y/o at 39 weeks admitted for [facility] for insulin requiring gestational diabetes. LMP 01/21 23 edc 10/28 c/w first trimester ultrasound. PNC significant for insulin requiring gestational diabetes and velementous cord insertion. She has had normal growth and normal surveillance. Labs reviewed. Review of Systems Review of Systems: All systems reviewed & are unremarkable except as noted in HPI and below Constitutional: Constitutional: Reports no additional constitutional complaints and Denies headache(s) Eyes: Eyes: Denies spots in vision ENT: Reports system reviewed and no additional complaints, except as documented and Denies headache(s) Cardiovascular: Cardiovascular: Denies chest pain and Denies dyspnea Respiratory: Respiratory: Denies dyspnea Gastrointestinal: Gastrointestinal: Reports no additional gastrointestinal complaints Genitourinary: Genitourinary: Reports amenorrhea Musculoskeletal: Musculoskeletal: Reports no additional musculoskeletal complaints Integumentary/Breasts: Skin/Breast: Denies breast mass and Denies rash Neurologic: Denies headache(s) Psychiatric: Psychiatric: Reports no additional psychiatric complaints [facility] Past Medical History Medical History Gestational diabetes mellitus (GDM) Spontaneous rupture of membranes Surgical History Surgical History [place] teeth removed Family History Family History Mother Skin cancer Polycythemia vera Diabetes mellitus Hypertension Father Diabetes mellitus Family history of hypercholesterolemia Lung cancer Hypertension Dementia Grandparent Diabetes mellitus Family history of hypercholesterolemia Hypertension Cerebrovascular accident Social History Social History Smoking status: Never smoker Alcohol intake: former Alcohol use details: Not since Substance use: never Lack of Transportation: No Lack of Food: Never True Current Housing: I Have Housing Concerned About Future Housing: No Difficulty Paying Gas/Electric Bills: No Difficulty Paying for Meds: No Currently Unemployed: No Education: Master's Degree or Higher Difficulty w/ Childcare or Family Care: No Living arrangements: with family Occupation/Education: occupation Gender identity (if verbalized by the patient): Female Sexual Orientation (if Verbalized by the Patient): Straight or Heterosexual Spiritual care concerns: No Meds Home Medications and Allergies Home Medications Medication Instructions Recorded Confirmed Type prenat.vits,leonardo,[id number]-[id number] 1 tablet PO DAILY 03/18/22 10/21/22 History blood sugar diagnostic (Contour #100 ea 08/15/22 10/21/22 Rx Next Test Strips) lancets 30 gauge (BD Ultra-Fine II #100 ea 08/15/22 10/21/22 Rx Lancets) ferrous sulfate 325 mg (65 mg 325 mg PO DAILY 08/26/22 10/21/22 History iron) tablet (Feosol) insulin detemir U-100 100 unit/mL 28 unit subcut HS 10/01/22 10/21/22 History (3 mL) subcutaneous pen (Levemir FlexPen) Allergies Allergy/AdvReac Type Severity Reaction Status Date / Time pine nut AdvReac Vomiting Verified 10/21/22 17:48 Vital Signs Vital Signs - 24 hr 10/22/22 06:30 10/22/22 07:00 10/22/22 07:30 Temperature 98.5 F Pulse Rate 88 95 89 Respiratory Rate 16 Blood Pressure 115/76 116/78 112/72 Pulse Oximetry Oxygen Delivery 10/22/22 07:45 10/22/22 08:00 10/22/22 08:30 Temperature 98.9 F Pulse Rate 83 86 Respiratory Rate Blood Pressure 119/84 118/74 Pulse Oximetry Oxygen Delivery 10/22/22 08:38 10/22/22 08:39 10/22/22 08:42 Temperature Pul
--- NOTE | 2022-10-23 06:36 | P.PCNOB_ITS ---
OB - Delivery Note Procedure Delivery date: 10/22/22 Procedure: Spontaneous vaginal delivery Events: Diabetes Mellitus and Other (Velementous cord insertion) Induction method: AROM and Per Cervidil Protocol Delivery augmentation: Rupture of Membranes and Pitocin Delivery monitor: External FHT Route of delivery: Laceration Description: Perineal - 1st Degree Delivery repair: vicryl (3.0 vicryl) Specimen: Yes (placenta and cord) Quantitative Blood Loss (ml): 200 Anesthesia type: Epidural Disposition: Floor Narrative: She was admitted for MIL with cervidil on evening of 10/21. She had her evening NPH dose of insulin. Once Pitocin started her BS were normal. The cervidil was removed morning of 10/21. Pitocin started. She had AROM. Clear fluid. She had epidural placed upon request. Dilated to complete within 3 hours. She pushed three times and delivered a female infant. Nose mouth suctioned at perineum. Tight nuchal cord surgically reduced. vigorously crying and placed on maternal abdomen. Placenta delivered spontaneously and intact. She sustained a first degree perineal laceration repaired with 3.0 vicryl. [place] Baby Date of : 10/22/22 Time of : 10:19 Weeks of gestation at delivery: 39 Infant gender: Female Weight (pounds): 7 Weight (ounces): 10 presentation: vertex position: Right Occiput Anterior Placenta delivery description: Spontaneous Cord Vessel Description: 3 Vessels, Nuchal Cord, Tight (surgically reduced) and Clamped/Cut score one minute: 8 score five minutes: 9
[2022-10-23 07:25] VITALS: BP 117/76; PULSE 84; RESP 16; TEMP 36.4; O2SAT 99
[2022-10-23] MEDS: DOCUSATE SODIUM 100 MG CAPSULE PO (07:28)
[2022-10-23] MEDS: IBUPROFEN 600 MG TABLET PO (07:28)
--- NOTE | 2022-10-23 07:52 | WPDANLDPN2 ---
Anes-Prog Note L&D Date/Time: 10/23/22 07:52 Comfortable throughout: labor and delivery Neuraxial method: epidural Epidural/Spinal procedure site: clean & non-tender Neuro status: Neuro function grossly intact. Cardiovascular status: normal Respiratory status: normal Airway patency: baseline Mental status: baseline Post-Op hydration status: normal Vital Signs: Last Vital Signs Temp 36.5 C 10/22/22 21:15 Pulse 90 10/22/22 21:15 Resp 16 10/22/22 21:15 BP 99/51 L 10/22/22 21:15 Pulse Ox 98 10/22/22 21:15 O2 Del Method Room Air 10/22/22 21:15 Pain score (VAS): 2/10 I/O: Intake & Output 10/22/22 10/22/22 10/23/22 15:59 23:59 07:59 Intake Total 1500 480 Output Total 75 Balance 1425 480 Post-procedural complaints: none Patient feedback: Patient satisfied with anesthetic care.
--- NOTE | 2022-10-23 14:18 | PC.NURSE ---
[id number] Re-introductions were made and mother states she continues to pump and feed with supplementation until her milk comes to full supply. Reviewed milk productions expectations and instructions given on cleaning, care, usage, that there should be no pain, pumping schedule for milk production, collection, and storage of human milk. Patient was encouraged to stimulation for adequate milk production every 3 hours (8 times in 24 hours) 1-2 times at night. Mother voiced understanding of the education shared along with mom and baby guide for additional resource information.
[2022-10-24 10:11] VITALS: BP 118/75; PULSE 71; RESP 18; TEMP 36.7; O2SAT 100
--- NOTE | 2022-11-05 10:35 | PM.OBDSVD ---
DS: Admitting Diagnosis Discharge Date 10/23/22 Admitting Diagnosis Medical induction of labor Gestational diabetes DS: Discharge Diagnosis Discharge Diagnosis Plan Vaginal delivery OB - DS: Summary Hospital Course Hospital Course: She was admitted for medical induction of labor for insulin requiring gestational diabetes. She had an uncomplicated vaginal delivery. She and baby did well . She requested discharge to home on day 1. OB Procedures : NST OB Procedures Intrapartum: Spontaneous Vag Delivery OB Procedures: : None Peripartum Data Delivery Method: Natural Vaginal Laceration Description: Perineal - 1st Degree complications: none Status at Discharge Functional status at discharge: independent ambulation Overall status at discharge: patient is back to baseline Time Spent with Patient Time attestation: Total time spent providing and/or coordinating discharge services: Exam Const: General: cooperative Orientation/consciousness: oriented to person, oriented to place and oriented to time HENMT: Face/Nose/Sinus: Normal external nose present Eyes: General: appearance normal, both eyes and all related structures Resp: Effort & Inspection: normal respiratory effort GI: Inspection: normal to inspection Skin: General skin exam: normal color Neuro: General: oriented to person, oriented to place and oriented to time Extrem: General: normal to inspection and no calf tenderness Psych: Appearance: grossly normal Mental Status: mental status grossly normal DS: Data Data Completed and Pending Completed studies during hospitalization: Pending at discharge 10/22/22 10:22 Surgical [PTH] Routine Discharge Plan Discharge Attending physician on discharge: Lauro Moreno Consulting providers: Moises Anaya; Ana Joshi Discharging Clinician: Lauro Moreno Anticipated Discharge Date/Time: 10/23/22 10:57 Patient Disposition: Home, Self-Care Activity: pelvic rest Diet: regular Discharge Instructions: Continue daily vitamin. Education: Mom and Baby Guide Given to: Mother Follow-Up: Call your delivering provider's office for an appointment to be seen in: 4 Weeks Mom [facility] baby [facility] the follow-up appointment. Appointment Date/Time: October 24, 2022 at 10:00 am What to expect at your follow-up visit: Blood Pressure Check Physical Assessment Call [phone] if you are unable to keep your appointment time. BREAST CARE: * Wear a snug supportive bra. * For engorgement discomfort: Breast Feeding: * Apply warm moist washcloths * Express milk as needed to relieve engorgement * Wear loose clothing * For sore nipples: * Identify correct latch-on * Apply warm moist washcloths before and after nursing * Air dry nipples after nursing * May apply Lansinoh cream to nipples EPISIOTOMY/PERINEAL CARE: * Until bleeding stops, use your shaheed bottle after urinating * Change your pad frequently throughout the day * You may take sitz baths several times a day (fill your bathtub with warm water and soak for 20 minutes.) Do NOT bathe in the water * No tub baths until seen by your physician - You may shower ACTIVITY: * Rest as much as possible. * Do not exercise or lift anything heavier than your baby (such as laundry or other children.) * Avoid stairs or driving as much as possible. * Do not put anything into the vagina. No douching, tampons, or sexual activity until seen by physician. NOTIFY PHYSICIAN IF YOU HAVE ANY QUESTIONS OR IF ANY OF THE FOLLOWING SYMPTOMS OCCUR: * If your episiotomy or incision becomes red, swollen, or more painful than what you have experienced in the hospital. * If your vaginal bleeding becomes foul smelling. * If your vaginal bleeding becomes more heavy than a per
== END 2022-10-23 12:50 | disposition home or self-care (01) | DRG 807 ==
LOC: ANHLDR 16:15 → ANHOB2 10-22 13:39
PROVIDERS: Admitting Provider Obstetrics & Gynecology; PCP Internal Medicine; Visit Provider Obstetrics & Gynecology
DX: O24.424 Gestational diabetes mellitus in childbirth, insulin controlled (principal); Z37.0 Single live birth; Z3A.39 39 weeks gestation of pregnancy; O43.123 Velamentous insertion of umbilical cord, third trimester; O70.0 First degree perineal laceration during delivery; O69.1XX0 Labor and delivery complicated by cord around neck, with compression, not applicable or unspecified
CPT/HCPCS: 36415; 82948; 85014; 85018; 85025; 86592; 86850; 86900; 86901; 88307; A9270; J2590; J2795; J7120